=== PATIENT | male | born 1960 | race Caucasian/White ===

== ENCOUNTER 2016-12-30 12:23 | Day surgery (SDC) | payer OTHER, MEDICARE ==
[2016-12-29 12:09] LABS: HEMATOCRIT 48.4 % (37.9-51.0); HEMOGLOBIN 16.3 g/dL (13.5-17.0); HGB HCT DIFFERENCE 0.5; MEAN CORPUSCULAR HEMOGLOBIN 28.9 pg (27.0-33.4); MEAN CORPUSCULAR HGB CONC 33.7 g/dL (32.0-36.0); MEAN CORPUSCULAR VOLUME 86 fl (80-97); RED BLOOD COUNT 5.64 10^6/uL (4.35-5.55); RED CELL DISTRIBUTION WIDTH 14.4 % (11.5-14.0); WHITE BLOOD COUNT 11.3 10^3/uL (4.0-10.5)
[2016-12-29 12:14] LABS: APPEARANCE,URINE CLOUDY; BILIRUBIN,URINE NEGATIVE (NEGATIVE); GLUCOSE, URINE 50 mg/dL (NEGATIVE); KETONES,URINE TRACE mg/dL (NEGATIVE); LEUKOCYTE ESTERASE,URINE TRACE (NEGATIVE); NITRITE,URINE NEGATIVE (NEGATIVE); PROTEIN,URINE NEGATIVE (NEGATIVE); UROBILINOGEN,URINE NEGATIVE mg/dL (<2.0)
[2016-12-29 12:16] LABS: PROTHROMBIN TIME 11.8 SEC (11.4-15.4)
[2016-12-29 12:17] LABS: PARTIAL THROMBOPLASTIN TIME 25.8 SEC (23.5-35.8)
--- NOTE | 2016-12-29 18:18 | EKG REPORT ---
SEVERITY:- NORMAL ECG - SINUS RHYTHM : Confirmed by: Christiano Ventura MD 29-Dec-2016 18:17:16
[~2016-12-30 12:23] MED LIST: CEFAZOLIN SODIUM 1 GM in DEXTROSE 5%-WATER 50 ML IV PRN; LIDOCAINE 0.5% INJ-PF (5 MG/ML) 50 ML SDV INJ PRN; LIDOCAINE 2% INJ-PF (20 MG/ML) 10 ML AMPUL ONE; RINGERS SOLUTION,LACTATED 1,000 ML IV PRN
[2016-12-30] MEDS ORDERED: LIDOCAINE 1% INJ-PF (10 MG/ML) 30 ML SDV ONE (14:15)
[2016-12-30] MEDS ORDERED: SODIUM BICARBONATE 8.4% INJ 50 MEQ/50 ML DISP.SYRIN ONE ×2 (14:15→14:17)
[2016-12-30] MEDS ORDERED: BUPIVACAINE HCL 0.25% /EPINEPHRINE INJ/PF 30 ML SDV ONE (14:15)
[2016-12-30] MEDS ORDERED: FENTANYL CITRATE INJ/PF 100 MCG/2 ML AMPUL ONE (14:36)
[2016-12-30] MEDS ORDERED: DEXMEDETOMIDINE INJ 80 MCG/20 ML VIAL IV ONE (14:37)
[2016-12-30] MEDS ORDERED: PROPOFOL INJ 200 MG/20 ML VIAL IV ONE (14:37)
[2016-12-30] MEDS ORDERED: MIDAZOLAM 2 MG/2 ML INJ ONE (14:37)
[2016-12-30] MEDS ORDERED: DIPHENHYDRAMINE HCL 50 MG/ML VIAL IV PRN (15:06)
[2016-12-30] MEDS ORDERED: MEPERIDINE HCL/PF INJ 25 MG/1 ML DISP.SYRIN IV PRN (15:06)
[2016-12-30] MEDS ORDERED: MORPHINE SULFATE 10 MG/ML INJ IV PRN (15:06)
[2016-12-30] MEDS ORDERED: OXYCODONE-ACETAMINOPHEN 5-325 MG TABLET PO PRN ×3 (15:06→16:06)
[2016-12-30] MEDS ORDERED: FENTANYL CITRATE INJ/PF 100 MCG/2 ML AMPUL IV PRN ×3 (15:06)
[2016-12-30] MEDS ORDERED: PROMETHAZINE HCL INJ 25 MG/1 ML VIAL IV PRN ×2 (15:06)
[2016-12-30] MEDS ORDERED: CEFAZOLIN INJ 1 GM VIAL ONE (15:55)
[2016-12-30 17:47] VITALS: BP 149/95
--- NOTE | 2016-12-31 13:16 | OPERATIVE REPORT E ---
Operative Report NAME: МАРИНА HAM : 1960 AGE: 56Y DATE OF SURGERY: 12/30/2016 ROOM: PREOPERATIVE DIAGNOSIS: Nonfunctional battery for cervical radiculopathy. POSTOPERATIVE DIAGNOSIS: New battery for spinal cord stimulation for chronic cervical radiculopathy OPERATION: Spinal cord stimulator battery replacement. SURGEON: JENNIFER GLASS M.D. FREIGHT LOADER: None. ANESTHESIA: MAC. COMPLICATIONS: None. PROCEDURE IN DETAIL: After obtaining informed consent and advising the patient of the risks and benefits, including serious neurological injury, bleeding, infection, allergic reaction, and , he was taken to the operating room. He was placed comfortably in the prone position. Confirmation was assessed visually and verbally. He was then prepped with chlorhexidine with suitable drying time prior to draping. The pulse generator was readily palpable. The cord was in the left superior quadrant of the upper buttock. The previous incision scar was anesthetized with 1% lidocaine with bicarb followed with epinephrine. Sharp and blunt dissection was performed down to the pulse generator. This was readily identified. Electrocautery was necessary for hemostasis. The old generator was removed easily. A small suture was placed for the new battery once connected in and performed impedance by the rep, which was confirmed. All were secured. Generator was placed in the pocket and impedance was tested and felt to be satisfactory. Good connectivity with the new generator was obtained. Wound was then copiously irrigated with Betadine containing irrigation solution. The battery was tacked down with facing superiorly and closer to surface. It was then closed with interrupted vertical mattress sutures of 3-0 Polysorb and skin came together nicely. The region was cleansed again, followed by placement of joan. When this was dried suitable, Tegaderm sponge dressing was placed on . He was then taken back to PACU for further postoperative care and monitoring. DICTATING PHYSICIAN: JENNIFER GLASS M.D. [id number] PHY#: [id number] ID: [id number] JOB#: [id number] ACCT: [id number] cc:JENNIFER GLASS M.D. >
== END 2016-12-30 17:35 | disposition home or self-care (01) ==
LOC: OROUT 12:23
PROVIDERS: ATTEND Student in an Organized Health Care Education/Training Program
PROC: 0JH70MZ Insertion of Stimulator Generator into Back Subcutaneous Tissue and Fascia, Open Approach (ICD-10-PCS; principal; 2016-12-30 14:30)
DX: M54.12 Radiculopathy, cervical region (principal); G89.4 Chronic pain syndrome; G63 Polyneuropathy in diseases classified elsewhere; F17.210 Nicotine dependence, cigarettes, uncomplicated; F45.42 Pain disorder with related psychological factors; F32.9 Major depressive disorder, single episode, unspecified; K59.00 Constipation, unspecified; M60.822 Other myositis, left upper arm; M60.832 Other myositis, left forearm; M60.812 Other myositis, left shoulder; M19.90 Unspecified osteoarthritis, unspecified site; Z85.46 Personal history of malignant neoplasm of prostate; Z85.51 Personal history of malignant neoplasm of bladder; Z86.39 Personal history of other endocrine, nutritional and metabolic disease; Z79.891 Long term (current) use of opiate analgesic; Z79.899 Other long term (current) drug therapy
CPT/HCPCS: 93005; 36415; 82962; 85027; 85610; 85730; 81001; 71020; 93010; 63685; C1820; C1787; J2250; J3490 ×5; J0690; J3010; J2704; 300

== ENCOUNTER → 2017-04-27 | Outpatient (CLI) | payer MEDICARE ==
--- NOTE | 2017-04-27 11:23 | RADIOLOGY REPORT (SQ) ---
EXAM DESCRIPTION: CHEST PA/LAT COMPLETED DATE/TIME: 04/27/2017 10:21 am REASON FOR STUDY: SOB (R06.02) COMPARISON: None. EXAM PARAMETERS: NUMBER OF VIEWS: two views TECHNIQUE: Digital Frontal and Lateral radiographic views of the chest acquired. RADIATION DOSE: NA LIMITATIONS: none FINDINGS: LUNGS AND PLEURA: No opacities, masses or pneumothorax. No pleural effusion. MEDIASTINUM AND HILAR STRUCTURES: No masses or contour abnormalities. HEART AND VASCULAR STRUCTURES: Heart normal size. No evidence for failure. BONES: No acute findings. HARDWARE: None in the chest. OTHER: No other significant finding. IMPRESSION: NO SIGNIFICANT RADIOGRAPHIC FINDING IN THE CHEST. TECHNICAL DOCUMENTATION: JOB ID: [id number] [email or web address]- All Rights Reserved
--- NOTE | 2017-04-27 11:43 | RADIOLOGY REPORT (SQ) ---
EXAM DESCRIPTION: NM LUNG VENT/PERF SCAN COMPLETED DATE/TIME: 04/27/2017 11:21 am REASON FOR STUDY: SOB (R06.02) R06.02 SHORTNESS OF BREATH COMPARISON: None. RADIONUCLIDE AND DOSE: 5.5 millicuries TC-99m MAA Intravenous 30 millicuries TC-99m DTPA Inhaled aerosol TECHNIQUE: Eight views of the lungs acquired post ventilation of DTPA aerosol. Eight matching views of the lungs acquired following injection of MAA. LIMITATIONS: None. FINDINGS: VENTILATION: Symmetric and homogeneous distribution of DTPA aerosol during ventilatory pha se. No significant areas of photopenia. PERFUSION: Perfusion images with normal homogenous activity and no wedge-shaped or segmental defects. No ventilation-perfusion mismatches. OTHER: No other significant finding. IMPRESSION: NORMAL VENTILATION-PERFUSION LUNG SCAN. NEGATIVE FOR PULMONARY EMBOLI. TECHNICAL DOCUMENTATION: JOB ID: [id number] [employer]- All Rights Reserved
== END ==
LOC: RAD 09:58
PROVIDERS: ATTEND Internal Medicine Pulmonary Disease
DX: R06.02 Shortness of breath (principal)
CPT/HCPCS: 71020; 78582; A9540; A9567; Q9969

== ENCOUNTER → 2017-04-28 | Outpatient (CLI) | payer MEDICARE ==
[~2017-04-28] MED LIST changes: +ALBUTEROL SULFATE 0.083% NEB 2.5 MG/3 ML AMPUL NEB ONE; -CEFAZOLIN SODIUM 1 GM in DEXTROSE 5%-WATER 50 ML IV PRN; -LIDOCAINE 0.5% INJ-PF (5 MG/ML) 50 ML SDV INJ PRN; -LIDOCAINE 2% INJ-PF (20 MG/ML) 10 ML AMPUL ONE; -RINGERS SOLUTION,LACTATED 1,000 ML IV PRN
--- NOTE | 2017-04-28 13:43 | Pulmonary Function Test ---
Pulmonary Function Test Date of Procedure:: 04/28/17 INDICATION:: Dyspnea Referring Provider: Container Maker: Kiana Solis ASSISTANT HEAD CASHIER - Report Spirometry: FVC 4.18 L 93% postbronchodilator therapy 4.12 L 91% FEV1 3.11 L 86% postbronchodilator therapy 3.15 L 87% FEV1/FVC % 74 postbronchodilator therapy 77 predicted 80 Lung Volume: Total lung capacity 5.68 L 85% Vital capacity 4.18 L 93% Inspiratory capacity 2.27 FRC N 23.4 1 96% ERV 1.48 RV 1.50 64% RV/TLC % 26 predicted 37 Diffusion Capactity: DLCO 16.6 73% DLCO/VA 3.46 88% Impression: Study does not meet criteria for obstructive ventilatory defect. Small airways disease is demonstrated and has a significant response to bronchodilator therapy. No restrictive ventilatory defect. No hyperinflation or air trapping. Mild decrease in diffusion capacity.
== END ==
LOC: RT 08:09
PROVIDERS: ATTEND Internal Medicine Pulmonary Disease
DX: R06.02 Shortness of breath (principal)
CPT/HCPCS: 94729; 94727; 94060; A9270

== ENCOUNTER 2019-07-04 12:56 | Emergency (ER) | payer MEDICARE ==
--- NOTE | 2019-07-04 14:41 | ER Document Report ---
ED Medical Screen (RME) - General Chief Complaint: Blood Pressure Problem Stated Complaint: BLOOD PRESSURE CONCERNS Time Seen by Provider: 07/04/19 14:08 Primary Care Provider: ADONAY ESPITIA MD [Primary Care Provider] - Follow up as needed Mode of Arrival: Ambulatory Information source: Patient Notes: Patient is a 59-year-old male presenting to the emergency department with multiple vague complaints. Patient reports last night he had an episode of hypotension, became very diaphoretic and nearly passed out. He reports at this time he did not have any chest pain or shortness of breath but does report a pain came across to his scapular area bilaterally. He states he called urgent care this morning to try to get an appointment however they referred him to the emergency department for cardiac work-up. Currently he denies any chest pain, shortness of breath, nausea or vomiting. Exam: Lung sounds clear and equal bilaterally. Heart sounds S1-S2 present with no ectopy noted I have greeted and performed a rapid initial assessment of this patient. A comprehensive ED assessment and evaluation of the patient, analysis of test results and completion of the medical decision making process will be conducted by additional ED providers. I have specifically instructed the patient or family members with the patient to immediately return to any nursing staff should anything change in the patient's condition or with their chief complaint. This medical record was dictated with voice recognizing software. There may be grammatical, syntax errors that are unintended. TRAVEL OUTSIDE OF THE [place] 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", Hx Heart Attack, Hx Hypertension Pulmonary Medical History: Denies: Hx Asthma, Hx Bronchitis, Hx COPD, Hx Pneumonia Neurological Medical History: Denies: Hx Cerebrovascular Accident, Hx Seizures Musculoskeltal Medical History: Reports Hx Arthritis - Immunizations Hx Diphtheria, Pertussis, Tetanus Vaccination: No Physical Exam - Vital signs Vitals: Temp Pulse Resp BP Pulse Ox 98.0 F 104 H 18 131/92 H 96 07/04/19 13:04 07/04/19 13:04 07/04/19 13:04 07/04/19 13:04 07/04/19 13:04 Course - Vital Signs Vital signs: Temp Pulse Resp BP Pulse Ox 98.0 F 104 H 18 131/92 H 96 07/04/19 13:04 07/04/19 13:04 07/04/19 13:04 07/04/19 13:04 07/04/19 13:04 Doctor's Discharge - Discharge Referrals: ADONAY ESPITIA MD [Primary Care Provider] - Follow up as needed
[2019-07-04 15:07] LABS: ABSOLUTE BASOPHILS # (AUTO) 0.1 10^3/uL (0.0-0.2); ABSOLUTE EOSINOPHILS # (AUTO) 0.5 10^3/uL (0.0-0.6); ABSOLUTE LYMPHOCYTES (AUTO) 3.2 10^3/uL (0.5-4.7); ABSOLUTE MONOCYTES (AUTO) 0.7 10^3/uL (0.1-1.4); ABSOLUTE NEUT (AUTO) 7.3 10^3/uL (1.7-8.2); BASOPHILS % (AUTO) 1.2 % (0-2); EOSINOPHILS % (AUTO) 4.5 % (0-6); HEMATOCRIT 49.2 % (37.9-51.0); HEMOGLOBIN 16.5 g/dL (13.5-17.0); LYMPHOCYTES % (AUTO) 27.1 % (13-45); MEAN CORPUSCULAR HGB CONC 33.5 g/dL (32.0-36.0); MEAN CORPUSCULAR VOLUME 86 fl (80-97); MONOCYTES % (AUTO) 6.1 % (3-13); PLATELET COUNT 353 10^3/uL (150-450); RED CELL DISTRIBUTION WIDTH 15.2 % (11.5-14.0); SEGMENTED NEUTROPHILS % (AUTO) 61.1 % (42-78); TOTAL CELLS COUNTED % (AUTO) 100 %
--- NOTE | 2019-07-04 15:36 | RADIOLOGY REPORT (SQ) ---
EXAM DESCRIPTION: CHEST 2 VIEWS COMPLETED DATE/TIME: 07/04/2019 3:26 pm REASON FOR STUDY: back pain, near syncope COMPARISON: 04/27/2017. EXAM PARAMETERS: NUMBER OF VIEWS: two views TECHNIQUE: Digital Frontal and Lateral radiographic views of the chest acquired. RADIATION DOSE: NA LIMITATIONS: none FINDINGS: LUNGS AND PLEURA: No opacities, masses or pneumothorax. No pleural effusion. MEDIASTINUM AND HILAR STRUCTURES: No masses or contour abnormalities. HEART AND VASCULAR STRUCTURES: Heart normal size. No evidence for failure. BONES: No acute findings. HARDWARE: Catheter in the posterior soft tissues. Hardware in the cervical spine. OTHER: No other significant finding. IMPRESSION: NO ACUTE RADIOGRAPHIC FINDING IN THE CHEST. TECHNICAL DOCUMENTATION: JOB ID: [id number] [employer]- All Rights Reserved Reading location - IP/workstation name: [email or web address]
[2019-07-04 15:38] LABS: ALBUMIN 4.1 g/dL (3.5-5.0); ALKALINE PHOSPHATASE 93 U/L (38-126); ANION GAP 6 (5-19); ASPARTATE AMINO TRANSFERASE 31 U/L (17-59); BILIRUBIN,DIRECT 0.3 mg/dL (0.0-0.4); BILIRUBIN,TOTAL 0.5 mg/dL (0.2-1.3); BLOOD UREA NITROGEN 16 mg/dL (7-20); CALCIUM 10.3 mg/dL (8.4-10.2); CARBON DIOXIDE 30 mmol/L (22-30); CHLORIDE 104 mmol/L (98-107); GLUCOSE 113 mg/dL (75-110); POTASSIUM 4.5 mmol/L (3.6-5.0); TOTAL PROTEIN 7.8 g/dL (6.3-8.2)
--- NOTE | 2019-07-04 18:00 | ER Document Report ---
ED General <CONSTANTINO SHARIF - Last Filed: 07/04/19 20:33> - General Mode of Arrival: Ambulatory Information source: Patient TRAVEL OUTSIDE OF THE [place] IN LAST 30 DAYS: No - HPI Onset: Yesterday Quality of pain: Achy Pain Level: 2 Associated symptoms: Other - Upper back pain. denies: Chest pain, Nonproductive cough, Productive cough, Diarrhea, Nausea, Vomiting Exacerbated by: Denies Relieved by: Denies Similar symptoms previously: No Recently seen / treated by doctor: No <FLAKO,JOSEANSHURAFAEL - Last Filed: 07/05/19 09:23> - General Chief Complaint: Blood Pressure Problem Stated Complaint: BLOOD PRESSURE CONCERNS Time Seen by Provider: 07/04/19 14:08 Primary Care Provider: ADONAY ESPITIA MD [Primary Care Provider] - Follow up as needed Notes: Patient states that yesterday around 10 PM he had an episode in which he felt short of breath became diaphoretic and felt like he was going to pass out while attempting to have a bowel movement. Patient states that he also developed upper back pain at that time. Patient states that symptoms lasted for about 45 minutes and then resolved. Patient states that whenever he called his primary doctor today and told him what had occurred they advised that he come here for evaluation. Patient presently denies any diaphoresis, chest pain, shortness of breath, nausea vomiting fever or urinary symptoms. Patient only complains of upper back pain. Patient denies any injury. (AMANDA ARRIOLA) - Related Data Allergies/Adverse Reactions: No Known Allergies Allergy (Unverified 12/29/16 09:41) Past Medical History - General Information source: Patient - Social History Smoking Status: Current Every Day Smoker Chew tobacco use (# tins/day): No Smoking Education Provided: Yes Frequency of alcohol use: Occasional Drug Abuse: None Occupation: None Lives with: Spouse/Significant other Family History: Reviewed & Not Pertinent Patient has suicidal ideation: No Patient has homicidal ideation: No - Past Medical History Cardiac Medical History: Reports: Hx Hypercholesterolemia, Other - Iliac aneurysm Denies: Hx Heart Attack, Hx Hypertension Neurological Medical History: Denies: Hx Cerebrovascular Accident, Hx Seizures Renal/ Medical History: Denies: Hx Peritoneal Dialysis Musculoskeletal Medical History: Reports Hx Arthritis Past Surgical History: Reports: Hx Orthopedic Surgery - Immunizations Hx Diphtheria, Pertussis, Tetanus Vaccination: No <AMANDA ARRIOLA - Last Filed: 07/05/19 09:23> Review of Systems - Review of Systems Constitutional: Diaphoresis - Yesterday at 10 PM for 45 minutes. denies: Fever, Recent illness EENT: No symptoms reported Cardiovascular: Lightheaded - Yesterday at 10 PM only for 45 minutes duration. denies: Chest pain, Palpitations Respiratory: No symptoms reported. denies: Cough, Short of breath Gastrointestinal: No symptoms reported. denies: Abdominal pain, Nausea, Vomiting Genitourinary: No symptoms reported Male Genitourinary: No symptoms reported Musculoskeletal: Back pain Skin: No symptoms reported Hematologic/Lymphatic: No symptoms reported Neurological/Psychological: No symptoms reported <AMANDA ARRIOLA - Last Filed: 07/05/19 09:23> Physical Exam - General General appearance: Appears well, Alert In distress: None - HEENT Head: Normocephalic, Atraumatic Eyes: Normal Conjunctiva: Normal Ears: Normal External canal: Normal Nasal: Normal Mouth/Lips: Normal Mucous membranes: Normal Pharynx: Normal Neck: Normal, Supple. No: Lymphadenopathy - Respiratory Respiratory status: No respiratory distress Chest status: Nontender Breath sounds: Normal. No: Rales, Rhonchi, Stridor, Wheezing Chest palpation: Normal - Cardiovascular Rhythm: Regular Heart sounds: S1 appreciated, S2 appreciated Murmur: No Pulses: Normal: Radial - Abdominal Inspection: Normal Distension: No distension Bowel sounds: Normal Tenderness: Nontender - Back Back: Tender - Bilateral trapezius muscle tenderness. No: Deformity/step-off, Vertebra tenderness - Extremities General upper extremity: Normal inspection, Normal ROM General lower extremity: Normal inspection, Normal ROM. No: Tender, Edema - Neurological Neuro grossly intact: Yes Cognition: Normal [place] Coma Scale Eye Opening: Spontaneous [place] Coma Scale Verbal: Oriented Sandip Coma Scale Motor: Obeys Commands Sandip Coma Scale Total: 15 - Psychological Associated symptoms: Normal affect, Normal mood - Skin Skin Temperature: Warm Skin Moisture: Dry Skin Color: Normal <AMANDA ARRIOLA - Last Filed: 07/05/19 09:23> - Vital signs Vitals: Temp Pulse Resp BP Pulse Ox 98.0 F 104 H 18 131/92 H 96 07/04/19 13:04 07/04/19 13:04 07/04/19 13:04 07/04/19 13:04 07/04/19 13:04 Course - Laboratory Result Diagrams: 07/04/19 14:55 07/04/19 14:55 <CONSTANTINO SHARIF - Last Filed: 07/04/19 20:33> - Laboratory Result Diagrams: 07/04/19 14:55 07/04/19 14:55 - EKG Interpretation by Vt EKG shows normal: Sinus rhythm When compared to previous EKG there are: No significant change <AMANDA ARRIOLA - Last Filed: 07/05/19 09:23> - Re-evaluation Re-evalutation: 07/04/19 20:33 Chest X-Ray 07/04/19 14:38 IMPRESSION: NO ACUTE RADIOGRAPHIC FINDING IN THE CHEST. Chest/Abdomen CTA 07/04/19 18:01 IMPRESSION: 1. No central PE. Mildly ectatic aortic root. Mild thickening of the left ventricle wall. Ascending aorta not dilated. No dissection. 2. Multiple tiny mediastinal lymph nodes. No suspicious adenopathy. No acute findings in the lungs are clear. Discussed results of CT with patient at bedside. 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 Patient continues to deny any pain management at this time. Patient stable for discharge. At this time will discharge with return precautions and follow-up recommendations. Verbal discharge instructions given a the bedside and opportunity for questions given. Medication warnings reviewed. Patient is in agreement with this plan and has verbalized understanding of return precautions and the need for primary care follow-up in the next 24-72 hours. This medical record was dictated with voice recognizing software. There may be grammatical, syntax errors that are unintended. (CONSTANTINO SHARIF) 07/04/19 18:[address] Larkin regarding patient presentation as well as diagnostic evaluation. Recommends CTA to evaluate for aneurysm as well as PE given the fact that patient had back pain in the setting of dyspnea, diaphoresis and near syncope. 07/04/19 20:05 Report and handoff given to Taylor DHALIWAL (AMANDA ARRIOLA) - Vital Signs Vital signs: Temp Pulse Resp BP Pulse Ox 98.0 F 104 H 18 162/92 H 97 07/04/19 13:04 07/04/19 13:04 07/04/19 20:02 07/04/19 20:02 07/04/19 20:02 - Laboratory Laboratory results interpreted by me: 07/04/19 07/04/19 14:55 14:55 WBC 12.0 H RBC 5.70 H RDW 15.2 H Glucose 113 H Calcium 10.3 H 07/04/19 19:35 Labs- Entire Visit 07/04/19 07/04/19 07/04/19 14:55 14:55 14:55 WBC 12.0 H RBC 5.70 H Hgb 16.5 Hct 49.2 MCV 86 MCH 29.0 MCHC 33.5 RDW 15.2 H Plt Count 353 Seg Neutrophils % 61.1 Lymphocytes % 27.1 Monocytes % 6.1 Eosinophils % 4.5 Basophils % 1.2 Absolute Neutrophils 7.3 Absolute Lymphocytes 3.2 Absolute Monocytes 0.7 Absolute Eosinophils 0.5 Absolute Basophils 0.1 Sodium 139.7 Potassium 4.5 Chloride 104 Carbon Dioxide 30 Anion Gap 6 BUN 16 Creatinine 0.87 Est GFR ( Amer) > 60 Est GFR (Non-Af Amer) > 60 Glucose 113 H Calcium 10.3 H Total Bilirubin 0.5 Direct Bilirubin 0.3 Neonat Total Bilirubin Not Reportable Neonat Direct Bilirubin Not Reportable Neonat Indirect Bili Not Reportable AST 31 ALT 22 Alkaline Phosphatase 93 Troponin I < 0.012 Total Protein 7.8 Albumin 4.1 (AMANDA ARRIOLA) - EKG Interpretation by Me Additional EKG results interpreted by me: 07/04/19 18:[address] elevation, no T wave inversion. QTc 410 (AMANDA ARRIOLA) Discharge <CONSTANTINO SHARIF - Last Filed: 07/04/19 20:33> <AMANDA ARRIOLA - Last Filed: 07/05/19 09:23> - Discharge Clinical Impression: Upper back pain Condition: Stable Disposition: HOME, SELF-CARE Instructions: Upper Back Strain ([facility]) Additional Instructions: Return immediately for any new or worsening symptoms Followup with your primary care provider, call tomorrow to make a followup appointment Forms: Smoking Cessation Education Referrals: ADONAY ESPITIA MD [Primary Care Provider] - Follow up as needed
[2019-07-04 20:18] VITALS: BP 162/92
--- NOTE | 2019-07-04 20:20 | RADIOLOGY REPORT (SQ) ---
EXAM DESCRIPTION: CT angiogram of the chest CLINICAL HISTORY: 59 years Male upper back pain COMPARISON: Chest x-ray from today. TECHNIQUE: Axial images performed without IV contrast. MIP reconstruction. 100 mL Omnipaque [id number]. This exam was performed according to our departmental dose-optimization program, which includes automated exposure control, adjustment of the mA and/or kV according to patient size and/or use of iterative reconstruction technique. FINDINGS: No evidence for central pulmonary embolus. Aorta well opacified. Mildly dilated aortic root up to 37 mm. Ascending aorta to 41 mm. No dissection. Mildly enlarged left ventricle of the heart. Mild wall thickening. Multiple small mediastinal lymph nodes. No suspicious adenopathy. No evidence for pericardial effusion. No suspicious lung or pleural abnormalities. Mild scoliosis. No suspicious acute thoracic spine abnormalities. Limited images of the upper abdomen are unremarkable. IMPRESSION: 1. No central PE. Mildly ectatic aortic root. Mild thickening of the left ventricle wall. Ascending aorta not dilated. No dissection. 2. Multiple tiny mediastinal lymph nodes. No suspicious adenopathy. No acute findings in the lungs are clear.
--- NOTE | 2019-07-05 09:46 | EKG REPORT ---
SEVERITY:- ABNORMAL ECG - SINUS RHYTHM LEFT ATRIAL ABNORMALITY : Confirmed by: Danielle Saldana 05-Jul-2019 09:46:04
== END 2019-07-04 21:00 | disposition home or self-care (01) ==
LOC: ER 12:56
DX: M54.6 Pain in thoracic spine (principal); F17.200 Nicotine dependence, unspecified, uncomplicated; E78.00 Pure hypercholesterolemia, unspecified
CPT/HCPCS: 36415; 71046; 71275; 80053; 84484; 85025; 93005; 93010; 99284